=== PATIENT | male | born 1935 | race Caucasian/White ===

== ENCOUNTER 2018-08-05 15:23 | Emergency (ER) | payer OTHER, MEDICARE ==
[~2018-08-05] VITALS: Ht 167.6 cm; Wt 96.2 kg
--- NOTE | ~2018-08-05 | EKG ---
[place], [place] ELECTROCARDIOGRAM REPORT NAME: MADDIE VALENZUELA UNIT #: [id number] ROOM: DOCTOR: EPIPHANY DRAFT REPORT BIRTHDATE: [birth year] [facility] Test Date: 2018-08-05 Test Time: 15:29:32 Pat Name: MADDIE VALENZUELA Department: Room: Gender: Bender Helper: : 1935 Requested By: BERTIN ORTIZ Order Number: [id number] Reading MD: Blanka Palma MD Measurements Intervals Luke Rate: 68 P: 84 AK: 96 QRS: 25 QRSD: 84 T: 6 QT: 431 QTc: 459 Interpretive Statements Sinus rhythm Short AK interval Low voltage, extremity leads Baseline wander in lead(s) V1 Electronically Signed On 08-12-2018 11:36:03 PDT by Blanka Palma MD CM:EKGRPT:ELECTROCARDIOGRAM REPORT [id number] BERTIN GUNN DRAFT REPORT BERTIN ORTIZ DO
[2018-08-05 15:55] LABS: BASO % 0.3 % (0.0-1.0); EOS # 0.2 10*3/uL (0.0-0.4); EOS % 2.2 % (1.0-4.0); HEMOGLOBIN 13.8 g/dl (14.0-18.0); LYMPH # 1.4 10*3/uL (1.3-4.4); LYMPH % 14.6 % (27.0-41.0); MEAN CELL VOLUME 87.6 fl (80.0-94.0); MEAN CORPUSCULAR HGB 26.3 pg (27.0-31.0); MEAN PLATELET VOLUME 11.7 fl (9.6-12.3); MONO # 0.9 10*3/uL (0.1-1.0); MONO % 9.8 % (3.0-9.0); NEUT % 72.9 % (47.0-73.0); PLATELET COUNT AUTOMATED 157 10*3/uL (130-400); RED BLOOD COUNT 5.25 10*6/uL (4.50-5.90); RED CELL DISTRI WIDTH 16.7 % (0-14.5); WHITE BLOOD COUNT 9.6 10*3/uL (4.8-10.8)
[2018-08-05 16:03] LABS: ACT PARTIAL THROMBO TIME 26.7 SECONDS (20.8-31.5); INTERNATIONAL NORM RATIO 1.2 (2.0-3.5)
[2018-08-05 16:18] LABS: ALBUMIN 3.5 gm/dl (3.1-4.5); ALKALINE PHOSPHATASE 165 U/L (45-117); BUN 20 mg/dl (7-24); CHLORIDE 105 mmol/L (98-107); CREATININE 1.09 mg/dL (0.70-1.30); LIPASE 186 U/L (73-393); POTASSIUM 3.7 mmol/L (3.5-5.1); SGOT/AST 13 IU/L (3-35); SGPT/ALT 23 U/L (12-78); SODIUM 138 mmol/L (136-145)
[2018-08-05 16:32] LABS: TROPONIN I < 0.015 ng/ml (<0.045)
== END 2018-08-05 18:51 | disposition home or self-care (01) ==
LOC: ED 15:23
PROVIDERS: Family Medicine
DX: R42 Dizziness and giddiness (principal); H53.8 Other visual disturbances; R68.2 Dry mouth, unspecified; R79.1 Abnormal coagulation profile; E11.9 Type 2 diabetes mellitus without complications